=== PATIENT | male | born 1985 | race Caucasian/White ===

== ENCOUNTER 2024-12-02 14:57 | Emergency (ER) | payer OTHER, SELFPAY ==
[2024-12-02 15:05] VITALS: BP 131/93
[2024-12-02 15:13] VITALS: BP 131/93
--- NOTE | 2024-12-02 15:32 | ED.GENMED ---
History of Present Illness
General
Chief Complaint: Headache
Source: patient and other (Intermediate staff)
Time Seen by Provider: 12/02/24 15:03
History of Present Illness
History of Present Illness:
This patient is a 39-year-old male who has never been to [facility] before in our records. He does not have any paperwork with him, and gives very limited history which he states is related to memory deficits related to a prior stroke.
The security guards who are with him states that they just began their shift shortly before bringing him here and have little information to share. The patient initially said that he was in his home today and when he was getting dressed he felt
like his ears and face were numb so he was going to go to [facility] where he gets his medical care. However, his landlord allow the police to come in who then took him to [facility]. He states that he was then brought to a
hospital but left AGAINST MEDICAL ADVICE and went back to the [facility]. He says 'the next thing I knew', he was getting a 'strip search', fell backwards, and hit his head. He initially said that this happened in a court house, but this has since
been corrected information. Overall patient says that he feels 'spaced out' and that the light bothers his eyes and he generally feels 'off'. He also reports a 24-hour history of feeling like his legs are retaining fluid and he feels slightly
nauseous. He denies chest pain or pressure but does note discomfort in the left scapula that comes and goes unpredictably every hour or 2 lasting 10 minutes at a time without associated symptoms such as diaphoresis, dyspnea, chest pain, neck pain,
etc. Patient is wearing a LifeVest. When our nursing staff inquired the nature of this and how long he has had it he states that he cannot remember because he had a stroke in the past. Our nursing staff called the LifeVest provider who states
that they have not had a report on the patient in over a year. Patient states that he has a visiting nurse 3 times a week come to his home, and states that she is there to take vital signs. He cannot describe further why a visiting nurse is
necessary. He lives with his /fianc� and states that he is compliant with patient's. He does not know what medications he takes or what they are for. He denies numbness, tingling, focal weakness, double vision, vomiting, fever, chills.
Earlier he did tell nursing staff that he had a mild headache and neck discomfort which has since resolved.
Past History
Past History
ED Past Medical History: Other (As per patient report, kidney stones, heart failure, stroke)
Social History
Tobacco: Smoker
Alcohol: Occasional
Drug: Former user
Personal:
Living: with family
Phy Exam
Physical Exam
Physical Exam:
GENERAL: Alert , in no apparent distress
EYE: pupils equal and reactive, EOMI, no nystagmus
NECK: Supple, no significant adenopathy, no midline tenderness.
ENT: o/p clr, mmm, TMs clear bilaterally, no herrmann, no raccoon, no signs of head or facial injury noted on exam.
CARDIAC: Regular rate and rhythm .
LUNGS: Clear breath sounds bilaterally, no acute respiratory distress, no wheezes/rales/rhonchi
ABDOMEN: Soft, without focal tenderness, no r/g, no cvat
NEUROLOGICAL: Alert and oriented, no focal neuro deficits, cranial nerves II through XII intact, motor 5 out of 5, sensory intact, [id number] normal
SKIN: Warm and dry, skin intact.
MUSCULOSKELETAL: Trace to 1+ bilateral lower extremity edema, well perfused.
PSYCH: Normal and appropriate interaction.
Course
Orders/Labs/Results
Orders:
Orders
12/02/24 15:06
Electrocardiogram (*1) Urgent
Reason for Study: Fatigue / Weakness
12/02/24 15:07
EKG- Treatment ONCE
12/02/24 15:31
CT Cervical Spine W/o Iv Contr Urgent
Comment:
Reason For Exam: fall
CT Head W/o Iv Contrast Urgent
Comment:
Reason For Exam: fall
Pulse Ox/cont/shift [RESP] Stat
Quantity: 1
12/02/24 15:32
Cardiac Monitoring- Treatment ONCE
12/02/24 15:48
Complete Blood Count/No Diff Urgent
Comprehensive Metabolic Panel Urgent
NT-proBNP Urgent
Troponin I Urgent
12/02/24 18:37
Troponin I Urgent
12/02/24 18:57
Electrocardiogram (*1) Urgent
Reason for Study: Other
Other Reason for Exam: repeat troponin
EKG- Treatment ONCE
12/02/24 19:18
Furosemide [Lasix] 40 mg PO NOW STA
Abnormal Lab Results
12/02/24
15:48
RDW 14.7 H %
(11.5-14.5)
Glucose 115 H mg/dl
(70-99)
ALT 59 H U/L
(0-50)
Alkaline Phosphatase 140 H U/L
(38-126)
12/02/24 15:48
12/02/24 15:48
Vital Signs
Initial and Last Documented VS:
Initial Vital Signs
Pulse Ox
98
12/02/24 15:00
Last Documented Vital Signs
Temp Pulse Resp BP Pulse Ox
98.9 F 95 21 128/79 97
12/02/24 15:13 12/02/24 19:00 12/02/24 19:00 12/02/24 18:33 12/02/24 15:13
Update Note
Update Note:
Patient presents to the Emergency Department with fall backwards striking head
Number and Complexity of Problems Addressed at the Encounter
� Chronic conditions affecting care:
� Acute Exacerbation and/or Progression of Chronic Illness:
� Differential Diagnosis includes: But not limited to intracranial injury, skull fracture, concussion, cardiac events, electrolyte disorder, etc. etc.
Amount and/or Complexity of Data to be Reviewed and Analyzed
� I performed an independent evaluation of and my interpretation is:
EKG: Read by me, normal sinus rhythm, no acute ischemia
CT: Head and neck read by radiology NAD
Xrays:
Laboratory Studies: Generally unremarkable, BNP elevation no prior for comparison. Troponin x 2 unremarkable.
Other:
� Review of other/old records reveals: Of note, patient states that he gets medical care at [facility]. I used [facility] physician link with patient's name and date of and there is no record of this patient. However, we were able to
get information faxed over to us, total of 41 pages, and I was able to review his medical history medications etc.
� Clinical information was obtained by an independent historian: Intermediate guards were bedside, present
� Prescriptions/Medications Considered but not given:
� Further testing considered but not performed:
Risk of Complications and/or Morbidity or Mortality of Patient Management
� Social determinants of health affecting care:
� Discussion with other providers (PCP, Hospitalists, Consultants, etc):
� Escalation of care including admission/observation vs risk of discharge considered: Patient without distress or symptoms. He is resting comfortably. Vitals unremarkable. BNP elevation noted, patient does not have overt heart
failure, lungs clear, pulse ox within normal limits, no dyspnea. Did recommend patient increase his Lasix for the next 3 days.
ED Attending Note
-
Portions of this chart may have been created with voice recognition software.� Occasional wrong word or��sound alike� substitutions may have occurred due to the inherent limitations of voice recognition software.
Discharge Plan
Departure
Patient Disposition: Intermediate
Date of Disposition: 12/02/24
Time of Disposition: 19:10
Patient with high blood pressure during this ER visit?: Yes
Condition: Good
Discharge Problem:
Headache
Instructions: Headache, Adult (DC), BLOOD PRESSURE
Referrals:
[facility] [Family Provider, General]
Activity Restrictions/Additional Instructions:
IF YOU DEVELOP CHEST PAIN, TROUBLE BREATHING, FEVER, DIZZINESS, VOMITING, OR OTHER WORRISOME SIGNS, GO TO THE ER IMMEDIATELY! It is recommended that you increase your Lasix by double the dose for the next 2 days.
Interventions
Interventions:
*Risk Screen - Suicide Last Done: 12/02/24 15:13
*General Assessment Last Done: 12/02/24 15:13
*Neglect/Abuse Screening Last Done: 12/02/24 15:13
*ED COVID-19 Vaccine History Last Done: 12/02/24 15:36
ED- Neurological Assessment Last Done: 12/02/24 15:00
Discharge Date and Time
Print Language: AUSTRALIAN
[2024-12-02 15:35] VITALS: BMI 35.4
[2024-12-02 15:58] LABS: Hematocrit 41.5 % (39.0-52.0); Hemoglobin 13.8 g/dL (13.0-18.0); Mean Corp Hgb Conc. 33.3 g/dL (33.0-37.0); Mean Corpuscular Volume 86.8 fL (80.0-94.0); Platelet Count 262 10^3/uL (130-400); Red Cell Dist. Width 14.7 % (11.5-14.5)
[2024-12-02 16:00] VITALS: BP 134/99
[2024-12-02 16:20] LABS: ALT (SGPT) 59 U/L (0-50); AST (SGOT) 40 U/L (17-59); Albumin 4.5 g/dl (3.5-5.0); Alkaline Phosphatase 140 U/L (38-126); Blood Urea Nitrogen 17 mg/dl (9-20); Calcium 9.2 mg/dl (8.4-10.2); Carbon Dioxide 27 mmol/L (22-30); Chloride 104 mmol/L (98-107); Estimated Creatinine Clearance > 125 ml/min; Glucose 115 mg/dl (70-99); Potassium 4.7 mmol/L (3.5-5.1); Sodium 139 mmol/L (135-145); Total Protein 7.6 g/dl (6.3-8.2); eGFR > 60.00
[2024-12-02 16:23] LABS: Troponin I 0.013 ng/ml
[2024-12-02 17:00] VITALS: BP 145/98
[2024-12-02 18:33] VITALS: BP 128/79
[2024-12-02 19:00] VITALS: BP 139/106
[2024-12-02 19:09] LABS: Troponin I < 0.012 ng/ml
[2024-12-02] MEDS: LASIX 40 MG PO (19:37)
== END 2024-12-02 20:03 ==
LOC: EMR 14:57
PROVIDERS: EMERGENCY PHYSICIAN Emergency Medicine
DX: R51.9 Headache, unspecified (principal); R03.0 Elevated blood-pressure reading, without diagnosis of hypertension; F17.200 Nicotine dependence, unspecified, uncomplicated
CPT/HCPCS: 99284; 70450; 72125; 80053; 83880; 84484; 85027; 93005